=== PATIENT | male | born 1990 | race Two or more races ===

== ENCOUNTER 2025-09-06 18:21 | Emergency (ER) | payer BC ==
[~2025-09-06] VITALS: Ht 167.6 cm; Wt 61.2 kg
[2025-09-06 18:28] VITALS: TEMP 97.8
[2025-09-06] MEDS ORDERED: KETOROLAC TROMETHAMINE 15 MG/ML VIAL ONE (18:47)
[2025-09-06] MEDS: IV NS 0.9% 1,000 ML BAG IV ONE ×2 (18:55→20:45)
[2025-09-06] MEDS: KETOROLAC TROMETHAMINE 15 MG/ML VIAL IV ONE (18:56)
[2025-09-06 19:03] LABS: PLATELET COUNT (AUTO) 498 K/uL (150-450); RED BLOOD CELL COUNT(AUTO) 4.39 MIL/uL (4.5-6.0); RED CELL DISTRIBUTION WIDTH 12.7 % (11.5-15.0); WHITE BLOOD COUNT (AUTO) 22.1 K/uL (4.3-11.0)
[2025-09-06 19:20] LABS: ASPARTATE AMINOTRANSFERASE 17.0 U/L (15-37); CALCIUM, SERUM 8.5 mg/dL (8.5-10.1); CREATININE 1.2 mg/dL (0.6-1.3); SODIUM SERUM 136.0 mmol/L (136-145); TOTAL PROTEIN, SERUM 6.9 g/dL (6.4-8.2); UREA NITROGEN, BLOOD 9.0 mg/dL (7-18)
[2025-09-06 19:36] LABS: LYMPHOCYTES % (MANUAL) 4 % (16-48); MONOCYTES % (MANUAL) 7 % (0-11.0); MYELOCYTES % 2 % (0-0); NEUTROPHILS % (MANUAL) 87 (42-76); PLATELET ESTIMATE INCREASED
[2025-09-06] MEDS ORDERED: METH4TAB3 PO (21:15)
[2025-09-06] MEDS ORDERED: AMOX-430 PO (21:15)
[2025-09-06 21:30] VITALS: BP 105/70; O2SAT 97
== END 2025-09-06 21:30 | disposition home or self-care (01) ==
LOC: ER 18:26
DX: K51.911 Ulcerative colitis, unspecified with rectal bleeding (principal); D72.829 Elevated white blood cell count, unspecified; R10.84 Generalized abdominal pain
CPT/HCPCS: 99285; 74176; 96374; 96361; 96375; 85027; 80048; 83690; 80076; 85007; 36415; J1885; J2919; J7030 ×2

== ENCOUNTER 2025-09-20 11:13 | Emergency (ER) | payer BC, OTHER ==
[~2025-09-20] VITALS: Ht 167.6 cm; Wt 59.0 kg
[~2025-09-20 11:13] MED LIST: AMOX-430 PO; METH4TAB3 PO
[2025-09-20 11:19] VITALS: TEMP 98.1
[2025-09-20 11:44] LABS: APPEARANCE,URINE CLEAR (CLEAR); BLOOD, URINE Large Ery/uL (NEGATIVE); LEUKOCYTE ESTERASE ,URINE Negative (NEGATIVE); NITRITE, URINE NEGATIVE (NEGATIVE); UGLUCOSE Negative (NEGATIVE)
[2025-09-20 11:46] LABS: PLATELET COUNT (AUTO) 566 K/uL (150-450); RED BLOOD CELL COUNT(AUTO) 4.27 MIL/uL (4.5-6.0); RED CELL DISTRIBUTION WIDTH 13.1 % (11.5-15.0); WHITE BLOOD COUNT (AUTO) 25.0 K/uL (4.3-11.0)
[2025-09-20 11:48] LABS: ADD URINE CULTURE NO; SQUAMOUS EPITHELIAL CELL,UR 0-2 /HPF (None Seen)
[2025-09-20 11:54] LABS: CALCIUM, SERUM 8.8 mg/dL (8.5-10.1); CREATININE 1.0 mg/dL (0.6-1.3); SODIUM SERUM 132.0 mmol/L (136-145); UREA NITROGEN, BLOOD 17.0 mg/dL (7-18)
[2025-09-20 11:59] LABS: ASPARTATE AMINOTRANSFERASE 18.0 U/L (15-37); TOTAL PROTEIN, SERUM 6.9 g/dL (6.4-8.2)
[2025-09-20] MEDS ORDERED: IV NS 0.9% 1,000 ML BAG IV ONE (12:30)
[2025-09-20] MEDS ORDERED: ONDANSETRON HCL/PF 4 MG/2 ML VIAL ONE (12:43)
[2025-09-20] MEDS ORDERED: IOHEXOL-300 100 ML VIAL IV ONE (12:52)
[2025-09-20] MEDS ORDERED: IV NS 0.9% 250 ML IV ONE (12:52)
[2025-09-20] MEDS: IV LR 1000 ML 1,000 ML BAG IV ONE (12:54)
[2025-09-20] MEDS: ONDANSETRON HCL/PF 4 MG/2 ML VIAL IVP ONE (12:55)
[2025-09-20] MEDS: MORPHINE SULFATE INJ 2 MG/ML DISP.SYRIN IV ONE (13:00)
[2025-09-20] MEDS: MORPHINE SULFATE INJ 4 MG/ML DISP.SYRIN IV ONE (13:02)
[2025-09-20] MEDS ORDERED: MORPHINE SULFATE INJ 4 MG/ML DISP.SYRIN ONE (13:02)
[2025-09-20] MEDS: CEFEPIME 1 GM in IV D5W 50 ML IV ONE (13:28)
[2025-09-20 19:15] VITALS: BP 135/90; O2SAT 99
== END 2025-09-20 23:01 | disposition short-term general hospital (02) ==
LOC: ER 11:20 → MEDSG1 15:30 → UNDOADMIN 15:30 → ER 23:01 → UNDODISIN 23:30
DX: A41.9 Sepsis, unspecified organism (principal); K51.90 Ulcerative colitis, unspecified, without complications; R10.31 Right lower quadrant pain
CPT/HCPCS: 99291; 74177; 96365; 96375; 85025; 80048; 87040 ×2; 87086; 83605; 83690; 80076; 81001; 36415; J2919; J2270; J2405; J7060; J7120 ×2; J7050; J0692; Q9967; G0378